=== PATIENT | male | born 1975 | race American Indian/Alaskan Native ===

== ENCOUNTER 2019-03-17 19:04 | Emergency (ER) | payer SELFPAY ==
[2019-03-17 19:25] VITALS: BP 129/76
== END 2019-03-17 19:30 | disposition left against medical advice (07) ==
LOC: ED 19:04
DX: R30.0 Dysuria (principal); Z53.21 Procedure and treatment not carried out due to patient leaving prior to being seen by health care provider

== ENCOUNTER 2019-03-22 09:15 | Emergency (ER) | payer SELFPAY | END 2019-03-22 10:00 | disposition left against medical advice (07) | LOC: ED 09:15 | DX: R30.9 Painful micturition, unspecified (principal); Z53.21 Procedure and treatment not carried out due to patient leaving prior to being seen by health care provider ==

== ENCOUNTER 2020-07-01 01:14 | Emergency (ER) | payer BC ==
[2020-07-01 01:27] VITALS: BP 148/98
== END 2020-07-01 02:53 | disposition left against medical advice (07) ==
LOC: ED 01:14
DX: N48.89 Other specified disorders of penis (principal); Z53.21 Procedure and treatment not carried out due to patient leaving prior to being seen by health care provider

== ENCOUNTER 2020-07-12 09:53 | Outpatient (CLI) | payer BC ==
--- NOTE | 2020-07-12 12:55 | Magnetic Resonance Report ---
MR pelvis wo/w con INDICATION: Penile curvature and swelling of head of Penis. TECHNIQUE: Multiplanar, multisequence MR images were obtained. COMPARISON: None available. FINDINGS: This study was performed with and without IV contrast. There is incomplete fat saturation in the exam is slightly limited by motion artifact. On the T2 axial images there is a deformity with thick hypoi ntense T2 signal along the right and dorsal aspect of the head of penis/glans with moderate enhanceme nt on the postcontrast images suggestive for Peyroine's disease seen best on sagittal series 4 images 16 through 19 and axial series 6 image 32. The corpora cavernosum and corpus spongiosum within penil e shaft appear within normal limits with thin tunica albuginea. IMPRESSION: 1. 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 Squamous c ell carcinoma is considered less likely. No penile abscess. Signer Name: Bro Henderson MD Signed: 07/12/2020 12:50 PM Workstation Name: [id number]
== END 2020-07-12 09:54 | disposition home or self-care (01) ==
LOC: MRI 09:53
PROVIDERS: ATTEND Urology
DX: N48.89 Other specified disorders of penis (principal)
CPT/HCPCS: 72197; A9577